=== PATIENT | female | born 2000 | race Caucasian/White ===

== ENCOUNTER 2024-06-14 14:28 | Emergency (ER) | payer OTHER, SELFPAY ==
[2024-06-14 14:32] VITALS: BP 124/78; PULSE 93; RESP 16; TEMP 37; O2SAT 99; BMI 32.2
[2024-06-14 14:57] LABS: Appearance Urine UA CLEAR; Bilirubin Urine UA NEGATIVE (NEGATIVE); Color Urine UA YELLOW; Glucose Urine UA NEGATIVE (Negative); Ketones Urine UA NEGATIVE (NEGATIVE); Leukocyte Esterase Urine UA NEGATIVE (NEGATIVE); Nitrite Urine UA NEGATIVE (Negative); Occult Blood Urine UA 2+ (Negative); Protein Urine UA NEGATIVE (Negative); Specific Gravity Urine UA 1.025 (1.000-1.035); Urobilinogen Urine UA 0.2 E.U./dL (0.2)
[2024-06-14 15:04] LABS: Bacteria Urine Few (2-10); Culture Indicated Urine Cult Not Indicated; RBC Urine 1-5/HPF (0-5/HPF); Squamous Epithelial Cell Urine 1-5 /HPF (0-5/HPF); Urine Volume 10mL (spun); WBC Urine 1-5/HPF (0-5/HPF)
[2024-06-14 15:16] LABS: Add Manual Diff / Slide Review NO; Basophils Absolute Auto 0 /uL (0-100); Basophils Percent Auto 0.4 % (0-2); Eosinophils Absolute Auto 200 /uL (0-450); Eosinophils Percent Auto 2.6 % (2-4); Hematocrit 38.9 % (36-46); Hemoglobin 13.7 g/dL (12.0-16.0); Lymphocytes Absolute Auto 2700 /uL (1100-4500); Lymphocytes Percent Auto 30.4 % (25-40); Mean Corpuscular HGB Conc 35.1 % (30-36); Mean Corpuscular Hemoglobin 31.7 PG (26-34); Mean Corpuscular Volume 90.3 fL (80-100); Monocytes Absolute Auto 600 /uL (0-900); Monocytes Percent Auto 6.7 % (3-14); Neutrophils Absolute Auto 5400 /uL (1500-7000); Neutrophils Percent Auto 59.9 % (50-75); Platelet Count 228 X10^3/uL (150-400); Red Blood Cell Count 4.31 X10^6/uL (4.0-5.2); Red Cell Distribution Width 13.3 % (11.6-14.8)
[2024-06-14 15:26] LABS: BUN Creatinine Ratio 22.7 (6-22); Blood Urea Nitrogen 17 mg/dL (7-17); Calcium 9.3 mg/dL (8.4-10.2); Carbon Dioxide 23 mmol/L (22-32); Chloride 106 mmol/L (98-107); Estimated Glomerular Filt Rate > 60 mL/min (>60); Glucose 115 mg/dL (70-100); HEMOLYSIS < 15 (0-50); Sodium 139 mmol/L (137-145)
[2024-06-14 15:43] LABS: HCG Quantitative /Beta subunit < 2.39 mIU/mL
--- NOTE | 2024-06-14 15:59 | ED.FEMALEGU ---
HPI - Female Genitourinary <Omid Moulton PA-C - Last Filed: 06/14/24 16:07> General Chief complaint: Vaginal Bleeding Stated complaint: random spotting period late by 2 weeks Time Seen by Provider: 06/14/24 14:34 Source: patient Mode of arrival: Ambulatory History of Present Illness HPI Narrative: This patient is a 23-year-old female that has been experiencing intermittent vaginal spotting versus bleeding for the past 2 weeks. The patient states that her menstrual cycle is, ?late by 2 weeks?. She denies vaginal pain, cramping, back pain, flank pain, dysuria or increased urinary frequency. Patient states that she took an at home test last night was positive. She has had one previous miscarriage in the past. The patient knows that she has a blood type of A negative. The patient did not plan on being if this is a positive . Related Data : 1 Para: 0 Total number of abortions (spontaneous and elective): 1 Previous Rx's Medication Instructions Recorded medroxyprogesterone 5 mg tablet 5 mg PO DAILY #7 tabs 06/14/24 (Provera) Review of Systems <Omid Moulton PA-C - Last Filed: 06/14/24 16:07> Review of Systems Narrative: General: See HPI : See HPI All other review of systems have been reviewed and are ultimately negative unless otherwise stated in the HPI. Exam <Omid Moulton PA-C - Last Filed: 06/14/24 16:07> Initial Vital Signs Initial Vital Signs: Vital Signs Temperature 98.6 F 06/14/24 14:32 Pulse Rate 93 H 06/14/24 14:32 Respiratory Rate 16 06/14/24 14:32 Blood Pressure 124/78 06/14/24 14:32 Pulse Oximetry 99 06/14/24 14:32 Oxygen Delivery Method Room Air 06/14/24 14:32 Const General: cooperative, healthy appearing, comfortable, well developed and well groomed [facility] Head: normal to inspection, normocephalic and atraumatic Face and sinus: normal facial exam and face symmetric Mouth: oral mucosae normal, lip normal and tongue normal Teeth and gingiva: dentition normal and gingiva normal Throat: posterior oropharynx normal and uvula midline Eyes General: Yes appearance normal, both eyes and all related structures Sclera: sclerae normal Pupils: PERRL, normal by confrontation and accommodation normal EOM: EOM intact bilaterally Neck Neck: normal visual inspection, full ROM, no meningeal signs, trachea midline and supple Resp Effort & Inspection: normal respiratory effort and able to speak in complete sentences Cardio Rate: regular rate Rhythm: regular rhythm Heart Sounds: S1 normal and S2 normal GI Inspection: normal to inspection General: other (No CVA tenderness bilaterally) Back/Spine/Pelvis Back: normal to inspection Skin General: no rashes or lesions noted, elasticity normal and turgor normal Neuro General: patient alert, patient awake, patient oriented x3, gait normal, no focal motor deficits and CN's II-XI intact bilaterally Extrem General: normal to inspection, full ROM, capillary refill normal, no joint enlargement, no clubbing, cyanosis or edema, no pedal edema and no calf tenderness Psych Appearance: grossly normal and well kempt <Delfino Bond DO - Last Filed: 06/14/24 16:20> Initial Vital Signs Initial Vital Signs: Vital Signs Temperature 98.6 F 06/14/24 14:32 Pulse Rate 93 H 06/14/24 14:32 Respiratory Rate 16 06/14/24 14:32 Blood Pressure 124/78 06/14/24 14:32 Pulse Oximetry 99 06/14/24 14:32 Oxygen Delivery Method Room Air 06/14/24 14:32 Course <Omid Moulton PA-C - Last Filed: 06/14/24 16:07> Course Course Narrative: Patient was seen and examined. Urinalysis revealed hematuria without evidence of infection. Urine test was noted to be negative. Laboratory studies were then ordered which revealed a negative quantitative HCG, normal H and H. at this time, the patient appears clinically stable for outpatient follow up. I will start her on medroxyprogesterone once a day for the next 7 days. She understands to follow up with her OBGYN next week as a recheck. I do not believe this is a miscarriage, ectopic or anemia that will require a transfusion. Her H&H, as previously stated, is within normal limits. I also do not believe this is pyelonephritis or nephrolithiasis. The patient has no flank pain at this time. Patient understands the treatment plan. There were no additional questions at the time of discharge and she will follow up as requested. Orders Ordered: ED Orders 06/14/24 14:40 UA dip and micro [Urinalysis and Microscopic] Stat 06/14/24 15:00 ABO RH Type Stat Basic Metabolic Panel Stat Complete Blood Count AUTO DIFF Stat HCG Quantitative /Beta subunit Stat Vital Signs Vital signs: Vital Signs - 8 hr 06/14/24 14:32 06/14/24 16:07 Temperature 98.6 F 98.5 F Pulse Rate 93 H 84 Respiratory Rate 16 19 Blood Pressure 124/78 131/75 Pulse Oximetry 99 99 Oxygen Delivery Method Room Air Room Air <Delfino Bond DO - Last Filed: 06/14/24 16:20> Orders Ordered: ED Orders 06/14/24 14:40 UA dip and micro [Urinalysis and Microscopic] Stat 06/14/24 15:00 ABO RH Type Stat Basic Metabolic Panel Stat Complete Blood Count AUTO DIFF Stat HCG Quantitative /Beta subunit Stat Vital Signs Vital signs: Vital Signs - 8 hr 06/14/24 14:32 06/14/24 16:07 Temperature 98.6 F 98.5 F Pulse Rate 93 H 84 Respiratory Rate 16 19 Blood Pressure 124/78 131/75 Pulse Oximetry 99 99 Oxygen Delivery Method Room Air Room Air MDM - Female Genitourinary <Omid Moulton PA-C - Last Filed: 06/14/24 16:07> Differential Diagnosis Differential diagnosis: Likely urinary tract infection, vaginitis, cystitis, dysmenorrhea and other (Miscarriage, , abnormal uterine bleeding as well as others) Medical Records Attestation: I reviewed the patient's medical records. Lab Data Attestation: I reviewed the patient's lab results. 06/14/24 15:00 06/14/24 15:00 Labs: Lab Results 06/14/24 06/14/24 Range/Units 14:40 15:00 WBC 9.0 (4.5-11.0) X10^3/uL RBC 4.31 (4.0-5.2) X10^6/uL Hgb 13.7 (12.0-16.0) g/dL Hct 38.9 (36-46) % MCV 90.3 (80-100) fL MCH 31.7 (26-34) PG MCHC 35.1 (30-36) % RDW 13.3 (11.6-14.8) % Plt Count 228 (150-400) X10^3/uL Neut % (Auto) 59.9 (50-75) % Lymph % (Auto) 30.4 (25-40) % [place] % (Auto) 6.7 (3-14) % Eos % (Auto) 2.6 (2-4) % Baso % (Auto) 0.4 (0-2) % Neut # (Auto) 5400 (6864-1148) /uL Lymph # (Auto) 2700 (5670-7351) /uL [place] # (Auto) 600 (0-900) /uL Eos # (Auto) 200 (0-450) /uL Baso # (Auto) 0 (0-100) /uL Sodium 139 (137-145) mmol/L Potassium 4.0 (3.4-5.1) mmol/L Chloride 106 (98-107) mmol/L Carbon Dioxide 23 (22-32) mmol/L BUN 17 (7-17) mg/dL Creatinine 0.75 (0.52-1.04) mg/dL Estimated GFR > 60 (>60) mL/min BUN/Creatinine Ratio 22.7 H (6-22) Glucose 115 H (70-100) mg/dL Calcium 9.3 (8.4-10.2) mg/dL HCG, Quant < 2.39 mIU/mL Urine Color Yellow Urine Appearance Clear Urine pH 6.0 (4.5-8.0) Ur Specific [place] 1.025 (1.000-1.035) Urine Protein Negative (Negative) Urine Glucose (UA) Negative (Negative) g/dL Urine Ketones Negative (NEGATIVE) Urine Occult Blood 2+ H (Negative) Urine Nitrate Negative (Negative) Urine Bilirubin Negative (NEGATIVE) Urine Urobilinogen 0.2 (0.2) E.U./dL Ur Leukocyte Esterase Negative (NEGATIVE) Urine RBC 1-5/hpf (0-5/HPF) Urine WBC 1-5/hpf (0-5/HPF) Ur Squamous Epith Cells 1-5 /hpf (0-5/HPF) Urine Bacteria Few (2-10) H (None) Ur Culture Indicated? Cult not indicated Vol Urine Centrifuged 10ml (spun) Blood Type A Negative Point of Care Testing Test Results Negative Urine Dip Bedside Urine Glucose Negative Bedside Urine Bilirubin - Negative Bedside Urine Ketone - Negative Urine Specific [place] 1.020 Bedside Urine Occult Blood +++ Bedside Urine pH 6.0 Bedside Urine Protein - Negative Bedside Urine Urobilinogen - Negative Bedside Urine Nitrite - Negative Bedside Urine Leukocytes - Negative Esterase MDM Narrative Medical decision making narrative: See above <Delfino Bond DO - Last Filed: 06/14/24 16:20> Lab Data Labs: Lab Results 06/14/24 06/14/24 Range/Units 14:40 15:00 WBC 9.0 (4.5-11.0) X10^3/uL RBC 4.31 (4.0-5.2) X10^6/uL Hgb 13.7 (12.0-16.0) g/dL Hct 38.9 (36-46) % MCV 90.3 (80-100) fL MCH 31.7 (26-34) PG MCHC 35.1 (30-36) % RDW 13.3 (11.6-14.8) % Plt Count 228 (150-400) X10^3/uL Neut % (Auto) 59.9 (50-75) % Lymph % (Auto) 30.4 (25-40) % [place] % (Auto) 6.7 (3-14) % Eos % (Auto) 2.6 (2-4) % Baso % (Auto) 0.4 (0-2) % Neut # (Auto) 5400 (2176-0123) /uL Lymph # (Auto) 2700 (5835-3075) /uL [place] # (Auto) 600 (0-900) /uL Eos # (Auto) 200 (0-450) /uL Baso # (Auto) 0 (0-100) /uL Sodium 139 (137-145) mmol/L Potassium 4.0 (3.4-5.1) mmol/L Chloride 106 (98-107) mmol/L Carbon Dioxide 23 (22-32) mmol/L BUN 17 (7-17) mg/dL Creatinine 0.75 (0.52-1.04) mg/dL Estimated GFR > 60 (>60) mL/min BUN/Creatinine Ratio 22.7 H (6-22) Glucose 115 H (70-100) mg/dL Calcium 9.3 (8.4-10.2) mg/dL HCG, Quant < 2.39 mIU/mL Urine Color Yellow Urine Appearance Clear Urine pH 6.0 (4.5-8.0) Ur Specific [place] 1.025 (1.000-1.035) Urine Protein Negative (Negative) Urine Glucose (UA) Negative (Negative) g/dL Urine Ketones Negative (NEGATIVE) Urine Occult Blood 2+ H (Negative) Urine Nitrate Negative (Negative) Urine Bilirubin Negative (NEGATIVE) Urine Urobilinogen 0.2 (0.2) E.U./dL Ur Leukocyte Esterase Negative (NEGATIVE) Urine RBC 1-5/hpf (0-5/HPF) Urine WBC 1-5/hpf (0-5/HPF) Ur Squamous Epith Cells 1-5 /hpf (0-5/HPF) Urine Bacteria Few (2-10) H (None) Ur Culture Indicated? Cult not indicated Vol Urine Centrifuged 10ml (spun) Blood Type A Negative Point of Care Testing Test Results Negative Urine Dip Bedside Urine Glucose Negative Bedside Urine Bilirubin - Negative Bedside Urine Ketone - Negative Urine Specific [place] 1.020 Bedside Urine Occult Blood +++ Bedside Urine pH 6.0 Bedside Urine Protein - Negative Bedside Urine Urobilinogen - Negative Bedside Urine Nitrite - Negative Bedside Urine Leukocytes - Negative Esterase Discharge Plan Departure Patient Disposition: Home Clinical Impression: Dysfunctional uterine bleeding Instructions: DI for Vaginal Bleeding Activity Restrictions/Additional Instructions: Start the medication today as prescribed Follow up your PCP or OBGYN next week as a recheck Return here for any new, emergent concerns Prescriptions: New medroxyprogesterone [Provera] 5 mg tablet 5 mg PO DAILY Qty: 7 0RF Stand Alone Forms: Patient Portal/API/Survey ED Sign-out <Delfino Bond, DO - Last Filed: 06/14/24 16:20> [facility] Dr Bond Co-Sign Statement: I was available for consultation during this patient's emergency department visit. This chart is signed by myself for administrative purposes only. I did not have direct contact with this patient during this visit. They were seen independently by the APC.
--- NOTE | 2024-06-14 16:06 | PC.NURSE ---
Pt reports history of miscarriage x1. Pt states she carried until 4 months. Pt reports she has had light spotting, no pain for a couple of weeks. States home test was taken last night.
[2024-06-14 16:07] VITALS: BP 131/75; PULSE 84; RESP 19; TEMP 36.9; O2SAT 99
== END 2024-06-14 16:08 | disposition home or self-care (01) ==
PROVIDERS: Emergency Medicine; Emergency Provider Physician Assistant
DX: N93.9 Abnormal uterine and vaginal bleeding, unspecified (principal)
CPT/HCPCS: 80048; 81001; 81003; 81025; 84702; 85025; 86900; 86901; 99282; 99283

== ENCOUNTER 2024-07-31 17:18 | Emergency (ER) | payer OTHER, SELFPAY ==
[2024-07-31] VITALS (8 sets, daily range): BP systolic 139–152; BP diastolic 76–83; PULSE 66–103; RESP 10–23; TEMP 36.6; O2SAT 97–100
--- NOTE | 2024-07-31 17:22 | EKG_ITS ---
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
--- NOTE | 2024-07-31 17:40 | PC.NURSE ---
Pt reports regular caffeine intake; pt did state she drank an energy drink that has approx 200mg caffeine in it. Pt states while she was at work they obtained an EKG at the doctor's office but stated they shredded the EKG. Pt states they did not note anything significant on the EKG. Pt states referral to cardiology was made today.
--- NOTE | 2024-07-31 18:13 | PC.NURSE ---
ekg shown to MD Bond
--- NOTE | 2024-07-31 18:16 | ED.ARRPALP ---
HPI - Arrhythmia/Palpitations General Chief Complaint: Arrhythmia/Palpitations Stated Complaint: irregular heart beat, sob, irregular EKG Time Seen by Provider: 07/31/24 17:40 Source: patient Mode of arrival: Ambulatory History of Present Illness HPI narrative: 23-year-old female complains of palpitation irregular heartbeat sensation intermittently since this morning 0730 after she had been up a couple of hours, did not drink coffee, did not have breakfast, no new medications or substances, denies alcohol use since 07/25/2024, no syncope or near-syncope. Denies recent alcohol use, though did have some alcohol over , none recent days. Denies drug use. No change in oral intake, no use of energy drinks or change in diet. No [id number] medications. No discontinuation of chronic medications. Related Data Home Medications Medication Instructions Recorded Confirmed etonogestrel 68 mg subdermal mg subdermal 07/31/24 implant (Nexplanon) Allergies Allergy/AdvReac Type Severity Reaction Status Date / Time Sulfa (Sulfonamide Allergy Rash Verified 07/31/24 17:38 Antibiotics) Patient History Social History Smoking Status: Current every day smoker Smoking Status: Current every day smoker tobacco type: vaping Exam Narrative Exam Narrative: GENERAL: Well-developed patient, in mild distress. HEAD: Atraumatic. Normocephalic. EYES: Pupils equal round and reactive. Extraocular motions intact. No scleral icterus. No injection or drainage. ENT: Nose without bleeding, purulent drainage. Throat without erythema, tonsillar hypertrophy or exudate. Airway patent. NECK: Trachea midline. Non tender CARDIOVASCULAR: Regular rate and rhythm without murmurs, gallops, or rubs. RESPIRATORY: Clear to auscultation. Breath sounds equal bilaterally. No wheezes, rales, or rhonchi. GASTROINTESTINAL: Abdomen soft, non-tender, nondistended. EXTREMITIES: No edema or joint tenderness. BACK: Nontender without deformity or crepitance. No flank tenderness. NEURO: AOx3. Motor functions grossly nonfocal SKIN: No rash or erythema of visible areas Initial Vital Signs Initial Vital Signs: Vital Signs Pulse Rate 92 H 07/31/24 17:30 Respiratory Rate 23 07/31/24 17:30 Blood Pressure 152/83 H 07/31/24 17:30 Pulse Oximetry 100 07/31/24 17:30 Course Orders Ordered: ED Orders 07/31/24 17:22 EKG-12 Lead Stat 07/31/24 17:37 EKG-12 Lead Stat 07/31/24 18:24 Complete Blood Count AUTO DIFF Stat Comprehensive Metabolic Panel Stat Lipase Stat Thyroid Stimulating Hormone Stat Vital Signs Vital signs: Vital Signs - 8 hr 07/31/24 20:30 Pulse Rate 66 Blood Pressure 139/76 Pulse Oximetry 97 MDM - Arrhythmia/Palpitations Lab Data Attestation: I reviewed the patient's lab results. Lab results narrative: White blood cell count 22984, hemoglobin 13.9, platelets adequate. Basic metabolic panel unremarkable. ALT slight elevation 37, other liver functions normal. Lipase normal. TSH normal. 07/31/24 18:24 07/31/24 18:24 Labs: Lab Results 07/31/24 Range/Units 18:24 WBC 10.7 (4.5-11.0) X10^3/uL RBC 4.40 (4.0-5.2) X10^6/uL Hgb 13.9 (12.0-16.0) g/dL Hct 40.2 (36-46) % MCV 91.3 (80-100) fL MCH 31.6 (26-34) PG MCHC 34.6 (30-36) % RDW 13.3 (11.6-14.8) % Plt Count 221 (150-400) X10^3/uL Neut % (Auto) 60.2 (50-75) % Lymph % (Auto) 31.0 (25-40) % [place] % (Auto) 5.7 (3-14) % Eos % (Auto) 2.6 (2-4) % Baso % (Auto) 0.5 (0-2) % Neut # (Auto) 6400 (3643-1638) /uL Lymph # (Auto) 3300 (1435-6938) /uL [place] # (Auto) 600 (0-900) /uL Eos # (Auto) 300 (0-450) /uL Baso # (Auto) 100 (0-100) /uL Sodium 138 (137-145) mmol/L Potassium 3.6 (3.4-5.1) mmol/L Chloride 106 (98-107) mmol/L Carbon Dioxide 24 (22-32) mmol/L BUN 11 (7-17) mg/dL Creatinine 0.77 (0.52-1.04) mg/dL Estimated GFR > 60 (>60) mL/min BUN/Creatinine Ratio 14.3 (6-22) Glucose 90 (70-100) mg/dL Calcium 9.4 (8.4-10.2) mg/dL Total Bilirubin 0.5 (0.2-1.3) mg/dL AST 28 (14-36) IU/L ALT 37 H (<35) IU/L Alkaline Phosphatase 48 (38-126) U/L Total Protein 7.2 (6.3-8.2) g/dL Albumin 4.6 (3.5-5.0) g/dL Globulin 2.6 (1.7-4.1) g/dL Albumin/Globulin Ratio 1.8 (1.0-2.8) Lipase 91 (23-300) U/L TSH 2.59 (0.47-4.68) uIU/mL ECG Data Attestation: I personally reviewed and interpreted this ECG as follows: Interpretation: Normal sinus rhythm with rate of 92, no obvious ST segment elevation or depression changes. SD 144, QRS 84, QTC 437. MDM Narrative Medical decision making narrative: 23-year-old female with palpitation symptoms today intermittent through the day, once with associated chest pain, no chest pain without any palpitation like symptoms. No syncope or presyncope symptoms. No history of pulmonary emboli, no history of cardiac problems. Denies drug and alcohol use. Screening labs pending. Screening EKG shows PACs. On the monitor she also is having PACs and felt them, it is likely she is feeling symptomatic PACs. Await laboratory test results. Serum studies unremarkable. Occasional PACs noted on monitor during history, pointed out to the patient, also seen on EKG, copy of her EKG provided for discharge. No further workup for now. Patient agrees, further follow up as an outpatient, could consider outpatient cardiac monitoring such as ZIO patch. Return precautions discussed. Discharged home Discharge Plan Departure Patient Disposition: Home Clinical Impression: Palpitations, PAC (premature atrial contraction) Activity Restrictions/Additional Instructions: Palpitation symptoms. EKG showed normal sinus rhythm, did happen to capture premature atrial contraction (PACs). 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 No sustained abnormal ectopic beats however were noted during your ER evaluation. Screening labs were unremarkable. Consider ZIO patch or other outpatient cardiac monitoring strategy, to screen additionally for any other cardiac rhythm abnormalities that might require further evaluation or treatment. Avoid caffeine products, energy drinks, alcohol. Follow up with your regular provider early next week. Return earlier to this/nearest emergency department for any change worsening symptoms or any concerns prior Clinic contact information also provided for local destination specialist on-call Dr. Coronel, though your primary care system might use different cardiologists, and you might require referral from your primary care provider. Prescriptions: No Action Nexplanon 68 mg Implant SUBDERMAL Referrals: ProviderИрина [Primary Care Provider] - Ko Coronel MD [Physician] - Stand Alone Forms: Patient Portal/API/Survey
[2024-07-31 19:01] LABS: Add Manual Diff / Slide Review NO; Basophils Absolute Auto 100 /uL (0-100); Basophils Percent Auto 0.5 % (0-2); Eosinophils Absolute Auto 300 /uL (0-450); Eosinophils Percent Auto 2.6 % (2-4); Hematocrit 40.2 % (36-46); Hemoglobin 13.9 g/dL (12.0-16.0); Lymphocytes Absolute Auto 3300 /uL (1100-4500); Mean Corpuscular HGB Conc 34.6 % (30-36); Mean Corpuscular Hemoglobin 31.6 PG (26-34); Mean Corpuscular Volume 91.3 fL (80-100); Monocytes Absolute Auto 600 /uL (0-900); Monocytes Percent Auto 5.7 % (3-14); Neutrophils Absolute Auto 6400 /uL (1500-7000); Neutrophils Percent Auto 60.2 % (50-75); Platelet Count 221 X10^3/uL (150-400); Red Cell Distribution Width 13.3 % (11.6-14.8); White Blood Cell Count 10.7 X10^3/uL (4.5-11.0)
[2024-07-31 19:20] LABS: Alanine Aminotransferase 37 IU/L (<35); Albumin 4.6 g/dL (3.5-5.0); Albumin Globulin Ratio 1.8 (1.0-2.8); Alkaline Phosphatase 48 U/L (38-126); Aspartate Aminotransferase 28 IU/L (14-36); BUN Creatinine Ratio 14.3 (6-22); Bilirubin Total 0.5 mg/dL (0.2-1.3); Blood Urea Nitrogen 11 mg/dL (7-17); Calcium 9.4 mg/dL (8.4-10.2); Carbon Dioxide 24 mmol/L (22-32); Chloride 106 mmol/L (98-107); Estimated Glomerular Filt Rate > 60 mL/min (>60); Globulin 2.6 g/dL (1.7-4.1); Glucose 90 mg/dL (70-100); HEMOLYSIS 17 (0-50); Potassium 3.6 mmol/L (3.4-5.1); Sodium 138 mmol/L (137-145); Total Protein 7.2 g/dL (6.3-8.2)
[2024-07-31 19:24] LABS: Lipase 91 U/L (23-300)
[2024-07-31 19:50] LABS: Thyroid Stimulating Hormone 2.59 uIU/mL (0.47-4.68)
== END 2024-07-31 20:48 | disposition home or self-care (01) ==
PROVIDERS: Emergency Medicine; Emergency Provider Emergency Medicine
DX: I49.1 Atrial premature depolarization (principal); F17.290 Nicotine dependence, other tobacco product, uncomplicated
CPT/HCPCS: 36415; 80053; 83690; 84443; 85025; 93005; 99283; 99284